=== PATIENT | male | born 1935 | race Caucasian/White ===

== ENCOUNTER → 2019-12-17 | Outpatient (CLI) | payer MEDICARE ==
[~2019-12-17] MED LIST: APIX5TAB PO; CRESTOR40 MG PO; ENAL5TAB12 PO; FLUT9.9S NS; HYDR-3164 PO; MONT10TA49 PO; MULT-658 PO; SPIR25TA5 PO; TAMS0.4C97 PO
== END | disposition home or self-care (01) ==
LOC: LAB 13:32
PROVIDERS: ATTEND Surgery
DX: Z11.59 Encounter for screening for other viral diseases (principal)
CPT/HCPCS: U0003-CS

== ENCOUNTER 2019-12-21 05:56 | Observation (INO) | payer MEDICARE ==
[2019-12-21] VITALS (9 sets, daily range): BP systolic 118–137; BP diastolic 64–81
[~2019-12-21] VITALS: Ht 190.5 cm; Wt 94.9 kg
[2019-12-21] MEDS ORDERED: BACITRACIN 50,000 UNIT in IV NORMAL SALINE 500ML BAG 500 ML IRR ONE (06:00)
[2019-12-21] MEDS ORDERED: TAMS0.4C97 PO (06:53)
[2019-12-21] MEDS ORDERED: ENAL5TAB PO (06:53)
[2019-12-21] MEDS ORDERED: APIX5TAB PO (06:53)
[2019-12-21] MEDS ORDERED: SPIR25TA5 PO (06:53)
[2019-12-21] MEDS ORDERED: CRESTOR40 MG PO (06:53)
[2019-12-21] MEDS ORDERED: MONT10TA49 PO (06:54)
[2019-12-21] MEDS ORDERED: MULT-658 PO (06:55)
[2019-12-21] MEDS ORDERED: FLUT9.9S NS (06:55)
[2019-12-21] MEDS ORDERED: BUPIVACAINE-EPI 0.5%-1:200000 MPF 30 ML VIAL. ONE (06:59)
[2019-12-21] MEDS ORDERED: IV RINGERS,LACTATED 1000ML 1,000 ML IV SCH (07:00)
[2019-12-21] MEDS ORDERED: PROCHLORPERAZINE 10 MG/2 ML VIAL. IV PRN (07:00)
[2019-12-21] MEDS ORDERED: HYDROmorphone 2 MG/ML VIAL IV PRN (07:00)
[2019-12-21] MEDS ORDERED: LIDOCAINE 1% PF 2 ML VIAL. ID PRN (07:00)
[2019-12-21] MEDS ORDERED: MORPHINE SULFATE 2 MG/ML VIAL. IV PRN (07:00)
[2019-12-21] MEDS ORDERED: fentaNYL PF VIAL 100 MCG/2 ML VIAL IV PRN ×2 (07:00)
[2019-12-21] MEDS ORDERED: ONDANSETRON PF 4 MG/2 ML VIAL. IV PRN (07:00)
[2019-12-21] MEDS ORDERED: fentaNYL PF VIAL 100 MCG/2 ML VIAL ONE (07:17)
[2019-12-21] MEDS ORDERED: GLYCOPYRROLATE 1 MG/5 ML VIAL. ONE (07:47)
[2019-12-21] MEDS ORDERED: SEVOFLURANE 61 TO 120 MINUTES. IH ONE (08:01)
[2019-12-21] MEDS ORDERED: ONDANSETRON PF 4 MG/2 ML VIAL. ONE (08:01)
[2019-12-21] MEDS ORDERED: DEXAMETHASONE SOD PHOS 4 MG/ML VIAL ONE (08:01)
[2019-12-21] MEDS ORDERED: LIDOCAINE 2% PF 5 ML VIAL. ONE (08:02)
[2019-12-21] MEDS ORDERED: PROPOFOL 10 MG/ML (20ML) VIAL. IV ONE (08:02)
[2019-12-21] MEDS ORDERED: PHENYLEPHRINE in 0.9% NACL PF 1 MG/10 ML SYRINGE. IV ONE (08:41)
--- NOTE | 2019-12-21 11:05 | PDOC4 ---
Operative Note Operative Note Operative Note: Preoperative Diagnosis: Left inguinal hernia Postoperative Diagnosis: Same Procedure: Left inguinal hernia repair with mesh Surgeon: Miguel Plain Goods Hemmer: Andriy CEBALLOS Anesthesia: Gen EBL: 10 ml Specimen: None Drains: None Complications: None Indication: The patient is an 84 year old male who was referred with a left inguinal hernia. He was offered surgical repair. The risks of surgery were discussed with include bleeding, infection, recurrence, pain, anesthetic risk, potential need for additional surgery or procedure. He understands and would like to proceed. Description: The patient was taken to the operating room and placed supine on the operating table. General anesthesia was performed. The left groin was shaved and prepped with chloroprep and draped in a standard surgical manner. An incision was made in the left groin with a scalpel. Cautery dissection was carried down to the external oblique aponeurosis. The aponeurosis was opened to the external ring. The contents of the inguinal canal were encircled with a pe nrose drain. The vas deferens and other cord structures were preserved. The patient had a moderate sized indirect hernia. The indirect hernia sac was mobilized from the surrounding cord structures down to its base. The sac was then inverted and the defect was filled with an extra large Phasix mesh plug. The plug was sutured into position with 2-0 vicryl. The entire inguinal floor was reinforced with a sterling hold prolene mesh patch. The patch was also sutured into position with 2-0 vicryl. Upon completion the patch rested well providing full coverage of the inguinal floor. The external was closed over the mesh with 2-0 vicryl. The subcutaneous tissue was closed with 3-0 vicryl and the skin was closed with 4-0 monocryl. The skin was infiltrated with 0.5% Marcaine and steristrips and a dressing were applied. The patient tolerated the procedure well and was sent to the PACU in stable condition. At the end of the case all counts were correct. IRIS ESPITIA MD Dec 21, 2019 11:05
[2019-12-21] MEDS ORDERED: HYDR-3164 PO (16:35)
--- NOTE | 2019-12-21 18:07 | NUR ---
Discharge Note: FRANCISCO CHOW [address] Discharge instructions and discharge home medications reviewed with Patient and a copy given. All questions have been answered and understanding verbalized. 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 Discontinued lines and drains: IV removed. Patient discharged to home. left by wheelchair to 's car. Had trouble with his seatbelt but refused to move to the back seat.
--- NOTE | 2019-12-21 18:14 | NUR ---
patient admit done on downtime paperwork.
== END 2019-12-21 17:55 | disposition home or self-care (01) ==
LOC: SURG 05:56 → 2 SOUTH 09:50
PROVIDERS: ADMIT Surgery; ATTEND Surgery
DX: K40.90 Unilateral inguinal hernia, without obstruction or gangrene, not specified as recurrent (principal)
CPT/HCPCS: 49505; A7015; C1781; G0378; G0379; J0690; J1100; J2370; J2405; J2704; J3010; J3490; J7040; J7120